=== PATIENT | male | born 1995 | race Hispanic/Latino ===

== ENCOUNTER 2020-07-24 10:02 | Outpatient (AMBR) | payer BC, SELFPAY ==
--- NOTE | 2020-07-14 11:09 | PTNOTE_ITS ---
PT OP Initial Eval Patient Information Visit Reasons: post op left knee Medical Diagnosis: s/p L knee a/s Treatment Dx #1: same Start of Care: 07/14/20 Date of Onset: 06/26/20 Initial Assessment Subjective Pt is 24 yr old male s/p L knee A/S meniscus repair about 2.5 weeks ago presents to therapy ambulating with antalgia. He reports the knee wants to hyperextend with gait. 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 Pt had injured the knee chasing his dog about 3 months ago. PMH: none reported Imaging: in EMR Pt goal: to walk without pain in order to work Objective L knee AROM: Flexion: 100 deg Extension: -10 SLR: 25 deg with extensor lag Strength: L quads 4-/5 limited by patella compression pain, hamstrings 4/5 Antalgic gait pattern with decreased stance time on L Assessment Pt presentation consistent with post op L knee A/S with decreased ROM, strength and WB tolerance. Pt ambulates with decreased WB on L. Pt has pain at first resistance into knee flexion that limits end-range tolerance and PROM. Pt can SLR slowly and has slight extensor lag. Pt has good rehab potential with attainable functional improvement. Eval followed by HEP with materials. Short Term and [employer] Team Member Goals 1. Independent with HEP 2. Improved knee flexion ROM to 115 deg and extension to full 3. Improved quad and hamstring strength to 4+/5 4. Improved ambulatory tolerance to community distances with symmetrical gait pattern. Treatment Plan 1. Manual therapy 2. Therex 3. Modalities as indicated, moist heat, ice, TENS Frequency and Duration 2x a week for 6 weeks Certification Dates: 07/14/20 to 10/12/20 Office Procedures PT Procedures PT Date of Service: 07/14/20 OP PT Eval Mod Complex 30 minutes: Yes
--- NOTE | 2020-07-22 15:42 | PT.ODAYNRPT ---
PT Outpatient Daily Note Date of Service: 07/22/20 OP Daily Note Visit Reasons: post op left knee Outpatient Physical Therapy Treatment Date: 07/22/20 Subjective: Same as time of eval. He reports a feeling of pressure when he bends the knee. Objective: See F/S for therex Assessment: Pt has difficulty with SLR due to quad weakness and lag. Plan: Continue per POC Length of Time (minutes) of Treatment: 30 Minutes Office Procedures PT Procedures PT Date of Service: 07/14/20 OP PT Eval Mod Complex 30 minutes: Yes PT Procedures PT Date of Service: 07/22/20 Therapeutic Exercise 30 minutes: Yes
--- NOTE | 2020-07-24 10:40 | PT.ODAYNRPT ---
PT Outpatient Daily Note Date of Service: 07/24/2020 OP Daily Note Visit Reasons: post op left knee Outpatient Physical Therapy Treatment Date: 07/24/20 Subjective: pt states his knee still painful and swollen. Objective: see flow sheet. Assessment: observed swelling upon visit. he ambulates with antalgic gait pattern due to knee pain. he still lacks knee extension as noted during his stretch. he had difficulty with SLR due to increase in pain from muscle weakness. he did not complete all reps due to pain. the quad contraction needs more strengthening. ice pack post ther ex. Plan: continue POC per PT. Length of Time (minutes) of Treatment: 30 Minutes Office Procedures PT Procedures PT Date of Service: 07/14/20 OP PT Eval Mod Complex 30 minutes: Yes PT Procedures PT Date of Service: 07/24/20 Therapeutic Exercise 30 minutes: Yes PT Procedures PT Date of Service: 07/22/20 Therapeutic Exercise 30 minutes: Yes
== END 2020-08-03 23:59 | disposition home or self-care (01) ==
PROVIDERS: PCP Family Medicine; Referring Provider Family Medicine; Visit Provider Orthopaedic Surgery
DX: M25.562 Pain in left knee (principal); R26.89 Other abnormalities of gait and mobility
CPT/HCPCS: 97110; 97162

== ENCOUNTER 2020-08-10 11:33 | Outpatient (AMBR) | payer BC, SELFPAY ==
--- NOTE | 2020-08-10 12:27 | PT.ODAYNRPT ---
PT Outpatient Daily Note Date of Service: 08/10/2020 OP Daily Note Visit Reasons: post op left knee Outpatient Physical Therapy Treatment Date: 08/10/20 Subjective: pt had LOB yesterday as he weight shifted all weight to his LLE while taking off his jeans in front of his bed. he was able to fall back on his bed to prevent fall but caused soreness shortly after. Objective: see flow sheet. Assessment: added TG squats and he did well with no complaints. noted good knee flexion and extension ROM while on TG for all reps. added light weight to his SLR which did cause muscle fatigue but was able to complete all reps with no change in his ROM in extension. Plan: continue POC per PT. Length of Time (minutes) of Treatment: 30 Minutes Office Procedures PT Procedures PT Date of Service: 08/10/20 Therapeutic Exercise 30 minutes: Yes
== END 2020-09-03 23:59 | disposition home or self-care (01) ==
PROVIDERS: PCP Family Medicine; Referring Provider Family Medicine; Visit Provider Orthopaedic Surgery
DX: M25.562 Pain in left knee (principal)
CPT/HCPCS: 97110